=== PATIENT | male | born 1940 | race Caucasian/White ===

== ENCOUNTER 2024-08-21 07:33 | Day surgery (SDC) | payer MEDICARE ==
[2024-08-21 08:42] VITALS: BP 166/98; TEMP 97.3
[2024-08-21] MEDS ORDERED: PROPOFOL 20 ML ONE (08:57)
== END 2024-08-21 10:00 | disposition home or self-care (01) ==
LOC: CSHSDC 07:33
PROVIDERS: ATTEND Specialist
PROC: 5A2204Z Restoration of Cardiac Rhythm, Single (ICD-10-PCS; principal; 2024-08-21)
DX: I48.0 Paroxysmal atrial fibrillation (principal); I10 Essential (primary) hypertension; I25.10 Atherosclerotic heart disease of native coronary artery without angina pectoris; I70.213 Atherosclerosis of native arteries of extremities with intermittent claudication, bilateral legs; I65.23 Occlusion and stenosis of bilateral carotid arteries; I70.1 Atherosclerosis of renal artery; I35.1 Nonrheumatic aortic (valve) insufficiency; I49.3 Ventricular premature depolarization; I25.83 Coronary atherosclerosis due to lipid rich plaque; I35.0 Nonrheumatic aortic (valve) stenosis; E78.2 Mixed hyperlipidemia; Z88.8 Allergy status to other drugs, medicaments and biological substances; Z87.891 Personal history of nicotine dependence; Z79.01 Long term (current) use of anticoagulants; Z79.899 Other long term (current) drug therapy
CPT/HCPCS: 92960; 93005 ×2; J2704; 93010